=== PATIENT | female | born 1955 | race Caucasian/White ===

== ENCOUNTER → 2019-02-13 | Outpatient (CLI) | payer OTHER ==
[~2019-02-13] MED LIST: Estrace Vagin42.5 GM VAG; Lisinopril2.5 MG PO; THERA-D2000 UNIT PO
[2019-02-15 15:07] LABS: HPV 16 Negative (Negative); HPV 18 Negative (Negative); HPV OTHER HR TYPES Negative (Negative)
== END | disposition home or self-care (01) ==
LOC: LAB 18:03 → LAB SHORT 18:03
PROVIDERS: Nurse Practitioner Women's Health
DX: Z12.4 Encounter for screening for malignant neoplasm of cervix (principal)
CPT/HCPCS: 87624; G0123

== ENCOUNTER 2019-03-14 05:50 | Day surgery (SDC) | payer OTHER ==
[~2019-03-14] VITALS: Ht 165.1 cm; Wt 93.4 kg
[~2019-03-14 05:50] MED LIST changes: -THERA-D2000 UNIT PO
--- NOTE | 2019-03-14 06:34 | NUR ---
History, Chart, Medications and Allergies reviewed before start of procedure. Patient confirms NPO status and agrees with scheduled surgery. Lungs clear T/O to Auscultation. Pre-Op teaching done. Pt verbalizes understanding. Patient reports completing Chlorhexadine shower X2 prior to admission to hospital. PATIENT DID NOT HAVE ANY JEWELRY, DENTURES, CONTACTS PRESENT AT ADMIT. PLAN TO PLACE GLASSES IN PACU IN MARKED CLEAR BAG.
[2019-03-14] MEDS ORDERED: THERA-D2000 UNIT PO (06:36)
--- NOTE | 2019-03-14 07:09 | NUR ---
PATIENT VOIDED AT ADMIT TO [facility]. PATIENT STATES SHE HAS LEFT HER PESARY IN PLACE, WILL DISCUSS WITH DR BARROS.
--- NOTE | 2019-03-14 07:14 | NUR ---
BUSINESS OFFICE MANAGER REPORT COMPLETED AT BEDSIDE WITH DHIRAJ HAN.
--- NOTE | 2019-03-14 07:21 | NUR ---
PER DR BARROS, GRIEVANCE MANAGER TO REMOVE PESSARY PRIOR TO PREP IN OR.
--- NOTE | 2019-03-14 11:03 | NUR ---
PT ARRIVED TO SURGICAL FLOOR VIA GURNEY AT 1045. PT A&0X4 WITH VSS. DENIES SOB OR CHEST PAINS. ABLE TO APPROPRIATLY COMMUNICATE NEEDS AND USE CALL LIGHT. WILL CONTINUE TO MONITOR AND MEDICATE PER EMAR.
--- NOTE | 2019-03-14 12:38 | NUR ---
03/14/19 1238 Zulema Abraham PLACED INTRAOPERATIVELY BY DR. BARROS
[2019-03-14 15:48] LABS: BASOPHILS ABSOLUTE AUTO 0.02 K/mm3 (0.00-0.23); BASOPHILS PERCENT AUTO 0 % (0-2); EOSINOPHILS PERCENT AUTO 0 % (0-6); Hemoglobin 14.2 g/dL (11.5-16.0); IMMATURE GRAN ABSOLUTE AUTO 0.07 K/mm3 (0.00-0.10); IMMATURE GRAN PERCENT AUTO 0 % (0-1); LYMPHOCYTES ABSOLUTE AUTO 0.58 K/mm3 (0.84-5.20); LYMPHOCYTES PERCENT AUTO 3 % (21-46); MONOCYTES PERCENT AUTO 2 % (4-13); Mean Corpuscular HGB 30.7 pg (26.0-34.0); Mean Corpuscular HGB Conc 32.3 g/dL (31.5-36.5); Mean Platelet Volume 10.8 fL (9.1-12.4); NEUTROPHILS ABSOLUTE AUTO 19.27 K/mm3 (1.96-9.15); NEUTROPHILS PERCENT AUTO 95 % (41-73); Platelet Count 205 K/mm3 (150-400); RDW Coefficient Variation 12.5 % (11.7-14.2); RDW Standard Deviation 43.9 fL (35.1-46.3); Red Blood Cell Count 4.63 M/mm3 (3.80-5.20); White Blood Cell Count 20.34 K/mm3 (4.00-11.30)
[2019-03-14 15:50] LABS: Mean Corpuscular Volume 95 fL (80-100)
--- NOTE | 2019-03-14 17:01 | NUR ---
SHIFT SUMMARY POD 0 S/P VAGINAL HYSTERECTOMY. A&OX4, VSS, AND TOLERATING DIET. MINIMAL VAGINAL SUSANA BLEEDING T/O SHIFT. SANDERSON PATENT AND DRAINING CLEAR, YELLOW URINE. PAIN CONTROLLED WITH PO PAIN MEDS. ABLE TO REPOSITION SELF AND AMBULATED WITH STAND BY THIS AFTERNOON. ENCOURAGED TO CONT. AMBULATION AND I.S. CALL LIGHT WITHIN REACH AND DEMONSTRATED APPROPRIATE USE.
--- NOTE | 2019-03-14 21:38 | NUR ---
ASSUMED CARE PATIENT REPORTS HEADACHE AND ABD PAIN; RELIEVED WITH MEDICATIONS PER EMAR, WARM APPLICATION (KPAD) AND REPOSITIONING. PATIENT ALERT AND ORIENTED X4. TKO LR RUNNING PER EMAR. SILVER DOLLAR SIZE AMOUNT OF BLOOD NOTED ON AC PAD UNDER PATIENT AT THIS TIME. SANDERSON DRAINING YELLOW URINE TO GRAVITY. PATIENT IS NOW SLEEPING/RESTFUL AFTER PAIN MEDICATION. CALL LIGHT W/I REACH. WILL CONTINUE TO MONITOR.
--- NOTE | 2019-03-14 23:32 | NUR ---
ASSUMED CARE OF PT. PT IS SLEEPING. WILL CONT TO MONITOR.
[2019-03-15 04:21] LABS: BASOPHILS ABSOLUTE AUTO 0.02 K/mm3 (0.00-0.23); BASOPHILS PERCENT AUTO 0 % (0-2); EOSINOPHILS ABSOLUTE AUTO 0.01 K/mm3 (0.00-0.68); EOSINOPHILS PERCENT AUTO 0 % (0-6); Hematocrit 34.3 % (33.0-51.0); Hemoglobin 11.2 g/dL (11.5-16.0); IMMATURE GRAN ABSOLUTE AUTO 0.04 K/mm3 (0.00-0.10); IMMATURE GRAN PERCENT AUTO 0 % (0-1); LYMPHOCYTES ABSOLUTE AUTO 1.67 K/mm3 (0.84-5.20); LYMPHOCYTES PERCENT AUTO 14 % (21-46); MONOCYTES ABSOLUTE AUTO 0.61 K/mm3 (0.16-1.47); MONOCYTES PERCENT AUTO 5 % (4-13); Mean Corpuscular HGB 29.6 pg (26.0-34.0); Mean Corpuscular HGB Conc 32.7 g/dL (31.5-36.5); Mean Platelet Volume 11.1 fL (9.1-12.4); NEUTROPHILS ABSOLUTE AUTO 9.71 K/mm3 (1.96-9.15); NEUTROPHILS PERCENT AUTO 81 % (41-73); Platelet Count 198 K/mm3 (150-400); RDW Coefficient Variation 12.6 % (11.7-14.2); RDW Standard Deviation 41.5 fL (35.1-46.3); Red Blood Cell Count 3.78 M/mm3 (3.80-5.20); White Blood Cell Count 12.06 K/mm3 (4.00-11.30)
[2019-03-15 04:22] LABS: Mean Corpuscular Volume 91 fL (80-100)
--- NOTE | 2019-03-15 04:43 | NUR ---
POD 1 S/P VAG HYSTER. DID FAIR DURING NIGHT. BIGGEST C/O WAS EMHTA WHICH SEEMED TO OCCUR AFTER NORCO GIVEN. DILAUDID WAS MOST EFFECTIVE WITH PAIN. HAS HAD MINIMAL VAG BLEEDING. WILL DC SANDERSON THIS AM. PLAN FOR DC HOME TODAY. CALL LIGHT IN REACH.
--- NOTE | 2019-03-15 09:30 | NUR ---
REMOVED VAG PACKING PER ORDERS.
--- NOTE | 2019-03-15 16:35 | NUR ---
DISCHARGED SANDERSON CATH PLACED AFTER PT FAILED VOIDING TRIAL. PLACED CATH TO PLUG. INSTRUCTED PT ON DC INSTRUCTIONS AND CATH CARE/MAINTENANCE. PT VERBALIZED UNDERSTANDING. PT TO CALL DR BARROS ON MONDAY FOR CATH REMOVAL. LEFT UNIT IN WC W/DC PAPERWORK AND POSSESSIONS IN HAND, ACCOMPANIED BY ROOMMATE.
== END 2019-03-15 17:02 | disposition home or self-care (01) ==
LOC: ORSCMMR 05:50 → ORD 07:30 → ORSCMMR 07:30 → SURS 10:50 → ORSCMMR 03-15 17:02
PROVIDERS: Obstetrics & Gynecology Gynecology
PROC: 0UT97ZZ Resection of Uterus, Via Natural or Artificial Opening (ICD-10-PCS; principal; 2019-03-14 07:30)
PROC: 0TSD0ZZ Reposition Urethra, Open Approach (ICD-10-PCS; principal; 2019-03-14 07:30)
PROC: 0JQC0ZZ Repair Pelvic Region Subcutaneous Tissue and Fascia, Open Approach (ICD-10-PCS; principal; 2019-03-14 07:30)
DX: N81.3 Complete uterovaginal prolapse (principal); D25.9 Leiomyoma of uterus, unspecified; N81.6 Rectocele; N39.3 Stress incontinence (female) (male); N80.0 Endometriosis of uterus; I10 Essential (primary) hypertension; Z87.891 Personal history of nicotine dependence; Z79.899 Other long term (current) drug therapy
CPT/HCPCS: 36415; 85025; 88307; A9270; A9270-GY; C1771; J0690; J1100; J1170; J1885; J2250; J2405; J2704; J2710; J3010; J7120

== ENCOUNTER 2020-04-03 20:05 | Emergency (ER) | payer OTHER ==
[~2020-04-03] VITALS: Ht 162.6 cm; Wt 98.9 kg
[~2020-04-03 20:05] MED LIST changes: +ALBU8HFA2 INH; +CYCL10 PO; +Estrace Vagin42.5 GM; +IBUP200 PO; +LOSA50 PO; +OMEP20ER PO; +THERA-D2000 UNIT PO; +Vitamin D2000 UNIT PO
== END 2020-04-03 22:37 | disposition home or self-care (01) ==
LOC: ER 20:05
DX: S01.01XA Laceration without foreign body of scalp, initial encounter (principal); I10 Essential (primary) hypertension; Z79.899 Other long term (current) drug therapy; Z88.5 Allergy status to narcotic agent; Z88.2 Allergy status to sulfonamides; Z88.1 Allergy status to other antibiotic agents; Z23 Encounter for immunization; Z87.891 Personal history of nicotine dependence; W18.30XA Fall on same level, unspecified, initial encounter
CPT/HCPCS: 36415; 70450; 72125; 90471; 90714; 99284-25